=== PATIENT | female | born 1985 | race Caucasian/White ===

== ENCOUNTER 2017-01-23 01:25 | Emergency (ER) | payer OTHER ==
[~2017-01-23] VITALS: Ht 152.4 cm; Wt 93.2 kg
[2017-01-23 02:20] LABS: HEMATOCRIT 38.4 % (36.0-46.0); MCH 28.9 PG (29.0-34.0); MCHC 33.1 G/DL (30.0-36.0); MCV 87.5 FL (83-99); MEAN PLAT.VOLUME 10.1 uM^3 (9.5-12.4); PLATELET COUNT 283 K/uL (156-360); RBC DIS.WIDTH-SD 45.2 % (39-53); RED BLOOD COUNT 4.39 M/uL (3.80-5.20); WHITE BLOOD COUNT 9.9 K/uL (4.1-10.2)
[2017-01-23 02:33] LABS: CHLORIDE 110 mEq/L (99-109); POTASSIUM 3.4 mEq/L (3.7-5.4); SODIUM 138 mEq/L (136-147)
[2017-01-23 02:35] LABS: GLUCOSE 91 mg/dL (70-99)
[2017-01-23 02:36] LABS: ANION GAP 11 MEQ/L (2-14)
[2017-01-23 02:38] LABS: SERUM ETHYL ALCOHOL < 10 mg/dL
[2017-01-23 02:39] LABS: GFR ESTIMATE (CALCULATED) > 59 mL/min/
[2017-01-23 02:40] LABS: UREA NITROGEN (BUN) 11 mg/dL (9-23)
[2017-01-23 05:06] LABS: AMPHETAMINE NEGATIVE (500 ng/mL); BARBITURATES NEGATIVE (200 ng/mL); BENZODIAZEPINES NEGATIVE (150 ng/mL); COCAINE NEGATIVE (150 ng/mL); INTERNAL CONTROLS VALID? YES; METHADONE NEGATIVE (200 ng/mL); METHAMPHETAMINE NEGATIVE (500 ng/mL); OPIATES (MORPHINE) NEGATIVE (100 ng/mL); OXYCODONE NEGATIVE (100 ng/mL); PHENCYCLIDINE NEGATIVE (25 ng/mL); PROPOXYPHENE NEGATIVE (300 ng/mL); THC CANNABINOIDS NEGATIVE (50 ng/mL); TRICYCLIC ANTIDEPRESSANTS PRESUMPTIVE POSITIVE (300 ng/mL)
[2017-01-23 05:16] VITALS: BP 109/80
== END 2017-01-23 05:35 | disposition home or self-care (01) ==
LOC: EME → EDBD 01:25 → EME 01:25
PROVIDERS: Emergency Medicine
DX: R41.82 Altered mental status, unspecified (principal); F17.200 Nicotine dependence, unspecified, uncomplicated
CPT/HCPCS: 80048; 85027; 99281; 99284; G0480; J7030

== ENCOUNTER 2017-03-29 20:44 | Emergency (ER) | payer OTHER ==
[~2017-03-29] VITALS: Ht 152.4 cm; Wt 72.5 kg
[2017-03-29 22:03] LABS: HEMATOCRIT 34.7 % (36.0-46.0); MCH 28.8 PG (29.0-34.0); MCHC 32.6 G/DL (30.0-36.0); MCV 88.5 FL (83-99); MEAN PLAT.VOLUME 10.1 uM^3 (9.5-12.4); PLATELET COUNT 298 K/uL (156-360); RBC DIS.WIDTH-CV 14.2 % (11.8-14.6); RBC DIS.WIDTH-SD 46.3 % (39-53); RED BLOOD COUNT 3.92 M/uL (3.80-5.20); WHITE BLOOD COUNT 7.1 K/uL (4.1-10.2)
[2017-03-29 22:15] LABS: CHLORIDE 110 mEq/L (99-109); POTASSIUM 3.5 mEq/L (3.7-5.4); SODIUM 138 mEq/L (136-147)
[2017-03-29 22:17] LABS: GLUCOSE 100 mg/dL (70-99)
[2017-03-29 22:18] LABS: ANION GAP 8 MEQ/L (2-14)
[2017-03-29 22:20] LABS: GFR ESTIMATE (CALCULATED) > 59 mL/min/
[2017-03-29 22:21] LABS: UREA NITROGEN (BUN) 8 mg/dL (9-23)
[2017-03-29] MEDS ORDERED: DOXYCYCLINE HY100 MG PO (22:29)
[2017-03-29 22:57] VITALS: BP 99/47
== END 2017-03-29 22:58 | disposition home or self-care (01) ==
LOC: EME 20:44
PROVIDERS: Emergency Medicine
DX: R60.0 Localized edema (principal); F32.9 Major depressive disorder, single episode, unspecified; E11.9 Type 2 diabetes mellitus without complications; K21.9 Gastro-esophageal reflux disease without esophagitis; F17.200 Nicotine dependence, unspecified, uncomplicated
CPT/HCPCS: 80048; 85027; 93970; 99281; 99283

== ENCOUNTER 2017-08-05 12:36 | Emergency (ER) | payer OTHER ==
[~2017-08-05] VITALS: Ht 152.4 cm; Wt 69.7 kg
[~2017-08-05 12:36] MED LIST: DOXYCYCLINE HY100 MG PO
[2017-08-05 14:47] LABS: HEMATOCRIT 37.3 % (36.0-46.0); MCH 27.7 PG (29.0-34.0); MCHC 33.5 G/DL (30.0-36.0); MCV 82.5 FL (83-99); RBC DIS.WIDTH-CV 14.3 % (11.8-14.6); RBC DIS.WIDTH-SD 42.8 % (39-53); RED BLOOD COUNT 4.52 M/uL (3.80-5.20); WHITE BLOOD COUNT 9.8 K/uL (4.1-10.2)
[2017-08-05 14:52] LABS: CHLORIDE 110 mEq/L (99-109)
[2017-08-05 14:53] LABS: SODIUM 140 mEq/L (136-147)
[2017-08-05 14:54] LABS: GLUCOSE 90 mg/dL (70-99)
[2017-08-05 14:56] LABS: ANION GAP 13 MEQ/L (2-14)
[2017-08-05 14:58] LABS: GFR ESTIMATE (CALCULATED) > 59 mL/min/
[2017-08-05 14:59] LABS: UREA NITROGEN (BUN) 5 mg/dL (9-23)
[2017-08-05 15:04] VITALS: BP 127/87
[2017-08-05 15:33] LABS: MEAN PLAT.VOLUME 10.9 uM^3 (9.5-12.4); PLAT.SUFFICIENCY DECREASED; PLATELET COUNT 140 K/uL (156-360)
[2017-08-05 15:36] LABS: ADD MIUA? NO; BILIRUBIN NEGATIVE; BLOOD NEGATIVE; COLOR YELLOW ((YELLOW)); GLUCOSE (STRIP) NEGATIVE; KETONES NEGATIVE; LEUKOCYTES NEGATIVE; NITRITE NEGATIVE; PROTEIN (STRIP) NEGATIVE; SPECIFIC GRAVITY 1.006 (1.000-1.030); UROBILINOGEN 0.2 MG/DL (0.2-1.0)
[2017-08-05 15:46] LABS: INTERNAL CONTROL VALID? YES
[2017-08-05 15:49] LABS: UCUL ADDED? NO
[2017-08-05] MEDS ORDERED: BENTYL10 MG PO (17:00)
[2017-08-05] MEDS ORDERED: ZOFRAN ODT4 MG PO (17:00)
[2017-08-05] MEDS ORDERED: KLONOPIN2 MG PO (17:37)
[2017-08-06 14:37] LABS: CHLAMYDIA TRACHOMATIS NEGATIVE; NEISSERIA GONORRHOEAE NEGATIVE
== END 2017-08-05 21:35 | disposition left against medical advice (07) ==
LOC: EME 12:36
PROVIDERS: Physician Assistant
DX: R10.9 Unspecified abdominal pain (principal); K59.00 Constipation, unspecified; I10 Essential (primary) hypertension; K21.9 Gastro-esophageal reflux disease without esophagitis; E03.9 Hypothyroidism, unspecified; F17.200 Nicotine dependence, unspecified, uncomplicated
CPT/HCPCS: 74176; 80048; 81003; 84703; 85027; 87210; 87491; 87591; 99281; 99283

== ENCOUNTER 2017-08-24 23:33 | Emergency (ER) | payer OTHER ==
[~2017-08-24] VITALS: Ht 152.4 cm; Wt 58.2 kg
[~2017-08-24 23:33] MED LIST changes: +BENTYL10 MG PO; +KLONOPIN2 MG PO; +ZOFRAN ODT4 MG PO
[2017-08-25 00:35] LABS: HEMATOCRIT 36.7 % (36.0-46.0); MCH 28.6 PG (29.0-34.0); MCHC 33.8 G/DL (30.0-36.0); MCV 84.8 FL (83-99); PLATELET COUNT 296 K/uL (156-360); RBC DIS.WIDTH-CV 14.9 % (11.8-14.6); RED BLOOD COUNT 4.33 M/uL (3.80-5.20); WHITE BLOOD COUNT 8.3 K/uL (4.1-10.2)
[2017-08-25 00:48] LABS: CHLORIDE 109 mEq/L (99-109); POTASSIUM 2.9 mEq/L (3.7-5.4); SODIUM 137 mEq/L (136-147)
[2017-08-25 00:51] LABS: GLUCOSE 103 mg/dL (70-99)
[2017-08-25 00:52] LABS: ANION GAP 6 MEQ/L (2-14)
[2017-08-25 00:53] LABS: TOTAL BILIRUBIN 0.3 mg/dL (0.0-1.0)
[2017-08-25 00:54] LABS: ALKALINE PHOSPHATASE 70 IU/L (3-129); GFR ESTIMATE (CALCULATED) > 59 mL/min/
[2017-08-25 00:56] LABS: UREA NITROGEN (BUN) 5 mg/dL (9-23)
[2017-08-25 01:03] LABS: QUANTITATIVE HCG < 4.0 MIU/ML
[2017-08-25 01:25] LABS: LIPASE 25 U/L (1.0-51.0)
[2017-08-25 03:06] LABS: ADD MIUA? YES; BILIRUBIN NEGATIVE; BLOOD NEGATIVE; COLOR YELLOW ((YELLOW)); GLUCOSE (STRIP) NEGATIVE; KETONES NEGATIVE; LEUKOCYTES TRACE; NITRITE NEGATIVE; PROTEIN (STRIP) NEGATIVE; SPECIFIC GRAVITY 1.006 (1.000-1.030); UROBILINOGEN 0.2 MG/DL (0.2-1.0)
[2017-08-25 03:14] LABS: BACTERIA RARE /HPF; EPITHELIAL CELLS RARE /HPF; MUCUS TRACE /LPF; RED BLOOD CELLS 0-5 /HPF (0-5); UCUL ADDED? NO; WHITE BLOOD CELLS 0-5 /HPF (0-5)
[2017-08-25 07:10] VITALS: BP 107/78
[2017-08-25 10:27] LABS: ADD MEDTOX COMMENT Y; AMPHETAMINE PRESUMPTIVE POSITIVE (500 ng/mL); BARBITURATES NEGATIVE (200 ng/mL); BENZODIAZEPINES NEGATIVE (150 ng/mL); COCAINE NEGATIVE (150 ng/mL); INTERNAL CONTROLS VALID? YES; METHADONE NEGATIVE (200 ng/mL); METHAMPHETAMINE NEGATIVE (500 ng/mL); OPIATES (MORPHINE) NEGATIVE (100 ng/mL); OXYCODONE NEGATIVE (100 ng/mL); PHENCYCLIDINE NEGATIVE (25 ng/mL); PROPOXYPHENE NEGATIVE (300 ng/mL); THC CANNABINOIDS NEGATIVE (50 ng/mL); TRICYCLIC ANTIDEPRESSANTS PRESUMPTIVE POSITIVE (300 ng/mL)
== END 2017-08-25 07:19 | disposition home or self-care (01) ==
LOC: EME 23:33
PROVIDERS: Emergency Medicine
DX: R10.84 Generalized abdominal pain (principal); E87.6 Hypokalemia; I10 Essential (primary) hypertension; K21.9 Gastro-esophageal reflux disease without esophagitis; F32.9 Major depressive disorder, single episode, unspecified; F41.9 Anxiety disorder, unspecified; F17.200 Nicotine dependence, unspecified, uncomplicated
CPT/HCPCS: 74020; 74176; 80053; 81003; 83690; 83735; 84100; 84702; 84999; 85027; 99281; 99285; J7030

== ENCOUNTER 2017-08-29 23:15 | Emergency (ER) | payer OTHER ==
[~2017-08-29] VITALS: Ht 152.4 cm; Wt 58.1 kg
[2017-08-30 00:33] LABS: HEMATOCRIT 36.4 % (36.0-46.0); MCH 28.5 PG (29.0-34.0); MCHC 34.3 G/DL (30.0-36.0); MCV 82.9 FL (83-99); MEAN PLAT.VOLUME 10.9 uM^3 (9.5-12.4); PLATELET COUNT 334 K/uL (156-360); RBC DIS.WIDTH-CV 14.4 % (11.8-14.6); RBC DIS.WIDTH-SD 43.3 % (39-53); RED BLOOD COUNT 4.39 M/uL (3.80-5.20); WHITE BLOOD COUNT 12.3 K/uL (4.1-10.2)
[2017-08-30 00:47] LABS: CHLORIDE 108 mEq/L (99-109); POTASSIUM 3.3 mEq/L (3.7-5.4); SODIUM 136 mEq/L (136-147)
[2017-08-30 00:51] LABS: GLUCOSE 88 mg/dL (70-99)
[2017-08-30 00:52] LABS: ANION GAP 12 MEQ/L (2-14)
[2017-08-30 00:53] LABS: GFR ESTIMATE (CALCULATED) > 59 mL/min/
[2017-08-30 00:54] LABS: ALKALINE PHOSPHATASE 77 IU/L (3-129); UREA NITROGEN (BUN) 9 mg/dL (9-23)
[2017-08-30 00:55] LABS: TROP-I INTERPRETATION NEGATIVE; TROPONIN-I < 0.01 ng/mL (0.0-0.30)
[2017-08-30 00:58] LABS: CREATINE KINASE 111 IU/L (1-294); TOTAL CK 111 IU/L (1-294)
[2017-08-30 01:04] LABS: QUANTITATIVE HCG < 4.0 MIU/ML
[2017-08-30 01:07] LABS: CK-MB 2.8 ng/mL (0.0-4.9)
[2017-08-30 01:14] LABS: TOTAL BILIRUBIN 0.2 mg/dL (0.0-1.0)
[2017-08-30 02:43] LABS: TROP-I INTERPRETATION NEGATIVE; TROPONIN-I < 0.01 ng/mL (0.0-0.30)
[2017-08-30 03:53] VITALS: BP 103/63
[2017-08-30] MEDS ORDERED: OMEPRAZOLE40 M1 PO (22:12)
[2017-08-30] MEDS ORDERED: LEVOTHYROXINE50 MCG PO (22:12)
[2017-08-30] MEDS ORDERED: MELOXICAM15 MG PO (22:14)
[2017-08-30] MEDS ORDERED: METFORMIN HCL500 MG PO (22:15)
[2017-08-30] MEDS ORDERED: QUETIAPINE FUM400 MG PO (22:16)
[2017-08-30] MEDS ORDERED: TOPIRAMATE100 MG PO (22:17)
[2017-08-30] MEDS ORDERED: KLOR-CON M1010 MEQ PO (22:18)
[2017-08-30] MEDS ORDERED: GABAPENTIN600 MG PO (22:20)
[2017-08-30] MEDS ORDERED: SUBOXONE 8 MG-1 EAC2 SL (22:20)
[2017-08-30] MEDS ORDERED: VYVANSE40 MG PO (22:21)
== END 2017-08-30 03:55 | disposition home or self-care (01) ==
LOC: EME 23:15
PROVIDERS: Emergency Medicine
DX: E86.0 Dehydration (principal); R07.9 Chest pain, unspecified; F31.9 Bipolar disorder, unspecified; I10 Essential (primary) hypertension; K21.9 Gastro-esophageal reflux disease without esophagitis; E03.9 Hypothyroidism, unspecified; F41.9 Anxiety disorder, unspecified; F17.200 Nicotine dependence, unspecified, uncomplicated
CPT/HCPCS: 71010; 80053; 81003; 82550; 82550 91; 82553; 83880; 84484; 84702; 85027; 93005; 99281; 99285; J2060; J7030

== ENCOUNTER 2017-08-30 16:37 | Inpatient (IN) | payer OTHER ==
[~2017-08-30] VITALS: Ht 152.4 cm; Wt 58.0 kg
[2017-08-30 17:36] LABS: BASOPHIL COUNT 0.1 K/uL (0-0.1); EOSINOPHIL (%) 0.8 % (0-5); EOSINOPHIL COUNT 0.1 K/uL (0-0.3); HEMATOCRIT 35.3 % (36.0-46.0); IMMATURE GRANULOCYTE (%) 0.4 % (0.0-0.7); INSTRUMENT ABS NEUTROPHIL CT 6.5 K/uL; LYMPHOCYTE COUNT 3.2 K/uL (1.0-2.8); MCH 28.2 PG (29.0-34.0); MCHC 33.7 G/DL (30.0-36.0); MCV 83.6 FL (83-99); MEAN PLAT.VOLUME 9.5 uM^3 (9.5-12.4); MONOCYTE COUNT 0.7 K/uL (0-0.8); NEUTROPHIL (%) 61.1 % (45-76); NEUTROPHIL COUNT 6.5 K/uL (1.8-6.4); PLATELET COUNT 287 K/uL (156-360); RBC DIS.WIDTH-CV 14.6 % (11.8-14.6); RBC DIS.WIDTH-SD 44.8 % (39-53); RED BLOOD COUNT 4.22 M/uL (3.80-5.20); WHITE BLOOD COUNT 10.6 K/uL (4.1-10.2)
[2017-08-30 17:47] LABS: CHLORIDE 109 mEq/L (99-109); POTASSIUM 3.6 mEq/L (3.7-5.4); SODIUM 137 mEq/L (136-147)
[2017-08-30 17:49] LABS: GLUCOSE 90 mg/dL (70-99)
[2017-08-30 17:50] LABS: ANION GAP 10 MEQ/L (2-14)
[2017-08-30 17:51] LABS: TOTAL BILIRUBIN 0.2 mg/dL (0.0-1.0)
[2017-08-30 17:52] LABS: ALKALINE PHOSPHATASE 71 IU/L (3-129); SERUM ETHYL ALCOHOL < 10 mg/dL
[2017-08-30 17:53] LABS: GFR ESTIMATE (CALCULATED) > 59 mL/min/
[2017-08-30 17:54] LABS: UREA NITROGEN (BUN) 9 mg/dL (9-23)
[2017-08-30] MEDS ORDERED: LEVOTHYROXINE50 MCG PO (22:12)
[2017-08-30] MEDS ORDERED: OMEPRAZOLE40 M1 PO (22:12)
[2017-08-30] MEDS ORDERED: MELOXICAM15 MG PO (22:14)
[2017-08-30] MEDS ORDERED: METFORMIN HCL500 MG PO (22:15)
[2017-08-30] MEDS ORDERED: QUETIAPINE FUM400 MG PO (22:16)
[2017-08-30] MEDS ORDERED: TOPIRAMATE100 MG PO (22:17)
[2017-08-30] MEDS ORDERED: KLOR-CON M1010 MEQ PO (22:18)
[2017-08-30] MEDS ORDERED: SUBOXONE 8 MG-1 EAC2 SL (22:20)
[2017-08-30] MEDS ORDERED: GABAPENTIN600 MG PO (22:20)
[2017-08-30] MEDS ORDERED: VYVANSE40 MG PO (22:21)
[2017-08-30 22:44] VITALS: BP 99/62
[2017-08-31 08:06] VITALS: BP 96/51
[2017-08-31 16:10] VITALS: BP 111/63
[2017-09-01 07:46] VITALS: BP 136/75
[2017-09-01] MEDS ORDERED: CYMBALTA60 MG PO (11:49)
[2017-09-01] MEDS ORDERED: CYMBALTA30 MG PO (11:49)
[2017-09-01] MEDS ORDERED: CATAPRES-TTS 11 EACH TD (11:50)
[2017-09-01 16:15] VITALS: BP 110/70
[2017-09-02 08:12] VITALS: BP 101/59
[2017-09-02 15:38] VITALS: BP 117/73
[2017-09-03 07:40] VITALS: BP 98/57
[2017-09-03] MEDS ORDERED: QUETIAPINE FUM300 MG PO (08:57)
== END 2017-09-03 11:21 | disposition home or self-care (01) | DRG 882 ==
LOC: EME 16:37 → 1WEST 20:17 → EDOF 20:17 → ENRESERV 22:34 → 1WEST 22:34
PROVIDERS: Emergency Medicine; Psychiatry & Neurology Psychiatry
DX: F43.23 Adjustment disorder with mixed anxiety and depressed mood (principal); F11.20 Opioid dependence, uncomplicated; R45.851 Suicidal ideations; F17.210 Nicotine dependence, cigarettes, uncomplicated; F60.3 Borderline personality disorder; F90.9 Attention-deficit hyperactivity disorder, unspecified type; F06.4 Anxiety disorder due to known physiological condition; E87.6 Hypokalemia; H00.11 Chalazion right upper eyelid; I10 Essential (primary) hypertension; K21.9 Gastro-esophageal reflux disease without esophagitis; K59.00 Constipation, unspecified; Z59.0 Homelessness; Z91.14 Patient's other noncompliance with medication regimen; R45.1 Restlessness and agitation; Z90.49 Acquired absence of other specified parts of digestive tract; Z73.6 Limitation of activities due to disability; Z88.5 Allergy status to narcotic agent
CPT/HCPCS: 80053; 80306 90; 82550; 82607; 82746; 84443; 85025; 90839; 97165 GO; 99281; 99285; G0480; J0574

== ENCOUNTER 2017-10-06 12:40 | Inpatient (IN) | payer OTHER ==
[~2017-10-06] VITALS: Ht 152.4 cm; Wt 58.2 kg
[~2017-10-06 12:40] MED LIST changes: +CATAPRES-TTS 11 EACH TD; +CYMBALTA30 MG PO; +CYMBALTA60 MG PO; +GABAPENTIN600 MG PO; +KLOR-CON M1010 MEQ PO; +LEVOTHYROXINE50 MCG PO; +MELOXICAM15 MG PO; +METFORMIN HCL500 MG PO; +OMEPRAZOLE40 M1 PO; +QUETIAPINE FUM300 MG PO; +QUETIAPINE FUM400 MG PO; +SUBOXONE 8 MG-1 EAC2 SL; +TOPIRAMATE100 MG PO; +VYVANSE40 MG PO
[2017-10-06 13:29] LABS: EOSINOPHIL (%) 0 % (0-5); HEMATOCRIT 38.3 % (36.0-46.0); IMMATURE GRANULOCYTE (%) 0.5 % (0.0-0.7); IMMATURE GRANULOCYTE COUNT 0.1 K/uL; INSTRUMENT ABS NEUTROPHIL CT 10.4 K/uL; LYMPHOCYTE COUNT 1.6 K/uL (1.0-2.8); MCH 28.4 PG (29.0-34.0); MCHC 33.4 G/DL (30.0-36.0); MCV 84.9 FL (83-99); MEAN PLAT.VOLUME 10.6 uM^3 (9.5-12.4); MONOCYTE (%) 6.7 % (3-12); MONOCYTE COUNT 0.9 K/uL (0-0.8); NEUTROPHIL (%) 80.6 % (45-76); NEUTROPHIL COUNT 10.4 K/uL (1.8-6.4); PLATELET COUNT 252 K/uL (156-360); RBC DIS.WIDTH-CV 15.3 % (11.8-14.6); RBC DIS.WIDTH-SD 47.5 % (39-53); RED BLOOD COUNT 4.51 M/uL (3.80-5.20); WHITE BLOOD COUNT 12.9 K/uL (4.1-10.2)
[2017-10-06 13:38] LABS: CHLORIDE 108 mEq/L (99-109); POTASSIUM 3.7 mEq/L (3.7-5.4); SODIUM 138 mEq/L (136-147)
[2017-10-06 13:40] LABS: GLUCOSE 130 mg/dL (70-99)
[2017-10-06 13:41] LABS: ANION GAP 11 MEQ/L (2-14)
[2017-10-06 13:43] LABS: GFR ESTIMATE (CALCULATED) > 59 mL/min/; SERUM ETHYL ALCOHOL < 10 mg/dL
[2017-10-06 13:45] LABS: UREA NITROGEN (BUN) 9 mg/dL (9-23)
[2017-10-06 13:47] LABS: SALICYLATE < 5.0 MG/DL (15-30)
[2017-10-06 16:18] LABS: INTERNAL CONTROL VALID? YES
[2017-10-06 16:19] LABS: ADD MIUA? YES; BILIRUBIN NEGATIVE; BLOOD LARGE; COLOR YELLOW ((YELLOW)); GLUCOSE (STRIP) NEGATIVE; KETONES 5; LEUKOCYTES NEGATIVE; NITRITE NEGATIVE; PROTEIN (STRIP) NEGATIVE; SPECIFIC GRAVITY 1.012 (1.000-1.030); UROBILINOGEN 0.2 MG/DL (0.2-1.0)
[2017-10-06 16:29] LABS: COCAINE PRESUMPTIVE POSITIVE (150 ng/mL); PHENCYCLIDINE NEGATIVE (25 ng/mL); THC CANNABINOIDS NEGATIVE (50 ng/mL)
[2017-10-06 16:30] LABS: AMPHETAMINE PRESUMPTIVE POSITIVE (500 ng/mL); BARBITURATES NEGATIVE (200 ng/mL); BENZODIAZEPINES NEGATIVE (150 ng/mL); INTERNAL CONTROLS VALID? YES; METHADONE NEGATIVE (200 ng/mL); METHAMPHETAMINE NEGATIVE (500 ng/mL); OPIATES (MORPHINE) NEGATIVE (100 ng/mL); OXYCODONE NEGATIVE (100 ng/mL); PROPOXYPHENE NEGATIVE (300 ng/mL); TRICYCLIC ANTIDEPRESSANTS PRESUMPTIVE POSITIVE (300 ng/mL)
[2017-10-06 16:33] VITALS: BP 124/69
[2017-10-06 16:34] VITALS: BP 124/69
[2017-10-06 16:35] LABS: UCUL ADDED? YES
[2017-10-06] MEDS ORDERED: CYMBALTA30 MG PO (18:16)
[2017-10-07 07:41] VITALS: BP 94/62
[2017-10-07 14:54] VITALS: BP 95/52
[2017-10-07 19:17] VITALS: BP 102/69
[2017-10-08 07:50] VITALS: BP 105/68
[2017-10-08 15:18] VITALS: BP 103/61
[2017-10-09 07:38] VITALS: BP 88/58
[2017-10-09 15:57] VITALS: BP 98/67
[2017-10-10 07:36] VITALS: BP 109/71
[2017-10-10 15:52] VITALS: BP 110/70
[2017-10-11 07:44] VITALS: BP 91/60
[2017-10-11 16:14] VITALS: BP 105/63
[2017-10-12 07:48] VITALS: BP 98/53
[2017-10-12 15:20] VITALS: BP 94/55
[2017-10-13 07:39] VITALS: BP 110/68
[2017-10-13 15:16] VITALS: BP 115/63
[2017-10-14 07:50] VITALS: BP 121/71
[2017-10-14 15:39] VITALS: BP 112/67
[2017-10-15 07:57] VITALS: BP 108/64
[2017-10-15 14:54] VITALS: BP 117/77
[2017-10-16 07:19] VITALS: BP 100/64
[2017-10-16 15:35] VITALS: BP 129/69
[2017-10-17 07:51] VITALS: BP 105/56
[2017-10-17 15:56] VITALS: BP 117/63
[2017-10-18 07:46] VITALS: BP 116/64
[2017-10-18] MEDS ORDERED: QUETIAPINE FUM300 MG PO (09:07)
[2017-10-18] MEDS ORDERED: CYMBALTA60 MG PO (09:07)
[2017-10-18] MEDS ORDERED: SEROQUEL200 MG PO ×2 (09:07→09:14)
[2017-10-18] MEDS ORDERED: GABAPENTIN600 MG PO (09:07)
[2017-10-18] MEDS ORDERED: CYMBALTA30 MG PO (09:07)
[2017-10-18] MEDS ORDERED: LEVOTHYROXINE50 MCG PO (09:08)
== END 2017-10-18 10:55 | disposition home or self-care (01) | DRG 885 ==
LOC: EME 12:40 → EDOF 15:08 → 1WEST 15:08 → ENRESERV 15:35 → 1WEST 16:27
PROVIDERS: Emergency Medicine
DX: F25.9 Schizoaffective disorder, unspecified (principal); R45.851 Suicidal ideations; F22 Delusional disorders; F60.3 Borderline personality disorder; G25.71 Drug induced akathisia; T43.3X5A Adverse effect of phenothiazine antipsychotics and neuroleptics, initial encounter; F11.20 Opioid dependence, uncomplicated; J44.1 Chronic obstructive pulmonary disease with (acute) exacerbation; J44.0 Chronic obstructive pulmonary disease with (acute) lower respiratory infection; J20.9 Acute bronchitis, unspecified; F14.10 Cocaine abuse, uncomplicated; F90.9 Attention-deficit hyperactivity disorder, unspecified type; F41.9 Anxiety disorder, unspecified; I10 Essential (primary) hypertension; K21.9 Gastro-esophageal reflux disease without esophagitis; E03.9 Hypothyroidism, unspecified; F17.200 Nicotine dependence, unspecified, uncomplicated; Z59.0 Homelessness
CPT/HCPCS: 71020; 80048; 81003; 84443; 84703; 85025; 90839; 94060; 94640; 94640 76; 94726; 94729; 97150 GO; 99202; 99281; 99284; G0480; J0574; Q0175; Q0177